=== PATIENT | male | born 2000 | race African-American/Black ===

== ENCOUNTER 2021-04-02 11:39 | Emergency (ER) | payer OTHER, SELFPAY ==
[2021-04-02 11:56] VITALS: BP 143/86; PULSE 77; RESP 16; TEMP 36.8; O2SAT 100; BMI 30.2
--- NOTE | 2021-04-02 12:01 | DI.RAD.S_ITS ---
PROCEDURE: XR KNEE LT 3V INDICATIONS: fall yesterday on knees TECHNIQUE: 3 views of the knee were acquired. COMPARISON: None. FINDINGS: Bones: No fractures or dislocations. No suspicious bony lesions. Soft tissues: No joint effusion. No suspicious soft tissue calcifications. IMPRESSION: No acute fracture. No osseous lesion. If symptoms and/or clinical suspicion for pathology persist, further assessment with repeat, or advanced imaging (e.g., CT, MRI, or bone scan) may be helpful for further assessment. Dictated by: Apollo Escobar M.D. on 04/02/2021 at 12:01 Approved by: Apollo Escobar M.D. on 04/02/2021 at 12:01
--- NOTE | 2021-04-02 12:01 | DI.RAD.S_ITS ---
PROCEDURE: XR KNEE RT 3V INDICATIONS: fall yesterday on knees TECHNIQUE: 3 views of the knee were acquired. COMPARISON: None. FINDINGS: Bones: No fractures or dislocations. No suspicious bony lesions. Soft tissues: No joint effusion. No suspicious soft tissue calcifications. IMPRESSION: No acute fracture. No osseous lesion. If symptoms and/or clinical suspicion for pathology persist, further assessment with repeat, or advanced imaging (e.g., CT, MRI, or bone scan) may be helpful for further assessment. Dictated by: Apollo Escobar M.D. on 04/02/2021 at 12:03 Approved by: Apollo Escobar M.D. on 04/02/2021 at 12:04
[2021-04-02] MEDS: ACETAMINOPHEN 325 MG TABLET 975 MG PO (13:01)
[2021-04-02] MEDS: TRAMADOL 50 MG TABLET PO (13:02)
--- NOTE | 2021-04-02 13:08 | ED.LOWEXIN ---
HPI - Extremity Injury (Lower) <TIFFANY Ewing - Last Filed: 04/02/21 18:59> General Chief Complaint: Extremity Injury, Lower Stated Complaint: Fell playing ball injure both knees Time Seen by Provider: 04/02/21 11:59 Source: patient Mode of arrival: Ambulatory History of Present Illness HPI Narrative: 21-year-old male presents to the emergency department with complaint of bilateral knee pain after mechanical fall while playing basketball yesterday on to his bilateral knees. He denies any popping, locking, clicking, getting stuck. He also denies any wounds to his knees. He reports that it is mildly swollen and tender to touch over the base of both of his knees. He denies any prior injuries to his knees. He denies any difficulty walking, he denies any numbness or tingling, denies any twisting motion during his injury. He reports that his pain is midline and at the base of his knees. Review of Systems <TIFFANY Ewing - Last Filed: 04/02/21 18:59> Review of Systems Narrative: General: denies fever, chills Head/Neck: denies headache, neck pain Eyes: denies visual changes, eye pain Cardio: denies chest pain, palpitations Respiratory: denies shortness of breath, cough GI: denies abdominal pain, nausea, vomiting, or diarrhea : denies dysuria, hematuria MSK: Endorses bilateral knee pain, denies any muscle weakness Skin: denies rash, itching Neuro: denies numbness, tingling Patient History <TIFFANY Ewing - Last Filed: 04/02/21 18:59> Social History Smoking Status: Never smoker Smoking Status: Never smoker alcohol intake frequency: 0-2 drinks per day Substance Use Type: does not use Exam <TIFFANY Ewing - Last Filed: 04/02/21 18:59> Narrative Exam Narrative: Independently reviewed vitals signs and nursing notes. General: Awake, alert, nontoxic, no cardiorespiratory distress Head/Neck: Atraumatic, neck full range of motion Eyes: EOMI, conjunctiva normal Nose: nares patent, no rhinorrhea Mouth/Throat: moist mucus membranes, posterior pharynx normal, no oral lesions Cardio: Regular rate and rhythm, no peripheral edema Respiratory: respirations unlabored without wheezing, stridor, or rales. No retractions. GI: Abdomen soft, nontender MSK: Moves all extremities, neurovascularly intact, pulses 2+ in the lateral feet, mild erythema at the base of both of his knees with very mild edema. Appears like a contusion to the base of both of his knees. No pain over his MCL, LCL, anterior drawer test negative, Santi test negative bilaterally. Full active range of motion present without deficit Skin: Normal capillary refill, no rash Neuro: Normal speech and cognition, normal gait Initial Vital Signs Initial Vital Signs: Vital Signs Temperature 98.3 F 04/02/21 11:56 Pulse Rate 77 04/02/21 11:56 Respiratory Rate 16 04/02/21 11:56 Blood Pressure 143/86 H 04/02/21 11:56 Pulse Oximetry 100 04/02/21 11:56 Course <TIFFANY Ewing - Last Filed: 04/02/21 18:59> Orders Ordered: ED Orders 04/02/21 12:01 XR knee LT 3V Stat XR knee RT 3V Stat Discontinued Medications Acetaminophen (Acetaminophen 325 Mg Tablet) 975 mg PO NOW ONE Stop: 04/02/21 12:36 Last Admin: 04/02/21 13:01 Dose: 975 mg Documented by: CRISSY Tramadol HCl (Tramadol 50 Mg Tablet) 50 mg PO NOW ONE Stop: 04/02/21 12:36 Last Admin: 04/02/21 13:02 Dose: 50 mg Documented by: CRISSY Vital Signs Vital signs: Vital Signs - 8 hr 04/02/21 11:56 Temperature 98.3 F Pulse Rate 77 Respiratory Rate 16 Blood Pressure 143/86 H Pulse Oximetry 100 MDM - Extremity Injury (Lower) <TIFFANY Ewing - Last Filed: 04/02/21 18:59> Imaging Data Extremity x-ray #1: Radiologist's Impression: PROCEDURE:? XR KNEE LT 3V ? INDICATIONS:? fall yesterday on knees ? TECHNIQUE:? 3 views of the knee were acquired.? ? COMPARISON:? None. ? FINDINGS:? ? Bones:? No fractures or dislocations.? No suspicious bony lesions.? ? Soft tissues:? No joint effusion.? No suspicious soft tissue calcifications.? ? ? IMPRESSION:? No acute fracture. No osseous lesion. If symptoms and/or clinical suspicion for pathology persist, further assessment with repeat, or advanced imaging (e.g., CT, MRI, or bone scan) may be helpful for further assessment. ? ? Dictated by: Apollo Escobar M.D. on 04/02/2021 at 12:01 ? ? Approved by: Apollo Escobar M.D. on 04/02/2021 at 12:01 ? Extremity x-ray #2: Radiologist's Impression: PROCEDURE:? XR KNEE RT 3V ? INDICATIONS:? fall yesterday on knees ? TECHNIQUE:? 3 views of the knee were acquired.? ? COMPARISON:? None. ? FINDINGS:? ? Bones:? No fractures or dislocations.? No suspicious bony lesions.? ? Soft tissues:? No joint effusion.? No suspicious soft tissue calcifications.? ? ? IMPRESSION:? No acute fracture. No osseous lesion. If symptoms and/or clinical suspicion for pathology persist, further assessment with repeat, or advanced imaging (e.g., CT, MRI, or bone scan) may be helpful for further assessment. ? ? Dictated by: Apollo Escobar M.D. on 04/02/2021 at 12:03 ? ? Approved by: Apollo Escobar M.D. on 04/02/2021 at 12:04 ? MDM Narrative Medical decision making narrative: 21-year-old male ambulate into the emergency department with complaint of pain to bilateral knees after falling on the last night while playing basketball. Patient's x-rays were negative for acute fracture, joint effusion, any osseous abnormality. Patient is ambulating without any complaint, he was given 1 dose of tramadol while in the emergency department. Patient did not have any pain over his LCL or MCL of either knee, his pain is midline and at the base of his joint. Patient has mild erythema and abrasion however no wounds or surrounding edema. Patient was instructed to follow-up with his PCP as scheduled, and to return to the emergency department if he has any worsening of his symptoms. Patient is appropriate and amenable to discharge home. Vital signs are stable on repeat examination is unremarkable. Patient has been informed of results. Patient has been given strict return to ER precautions for any new or worsening symptoms. Patient understands to follow up closely with outpatient providers as instructed. Patient understands plan and agrees to discharge home. All questions and concerns answered at this time. Discharge Plan Departure Patient Disposition: Home Clinical Impression: Contusion of knee, left Qualifiers: Encounter type: initial encounter Qualified Code(s): S80.02XA - Contusion of left knee, initial encounter Contusion of knee Qualifiers: Encounter type: initial encounter Laterality: right Qualified Code(s): S80.01XA - Contusion of right knee, initial encounter Activity Restrictions/Additional Instructions: *You have been diagnosed with bilateral knee injuries. Please use ice a couple times a day until your pain improves, you may wrap with a Zach bandage to help keep swelling down. Recommend staying off her knees much as possible for the next couple of days with a hurt. Ibuprofen and Tylenol home she will be helpful. Please follow-up with your PCP if this is ongoing. Best of luck to you *What to do: *Please continue to take your regular medications as directed. [ ] New medication prescriptions sent to your pharmacy: [ ] [ ] New medication written as a paper prescription [ x] No new medications given *Please follow up with your primary care provider in 2-3 days, call for an appointment. Let them know you were seen in the Emergency Department and that we ask that you be seen in follow up. We will electronically transmit a record of today's note if your PCP is in our system *If you do not have a primary care provider please contact the [facility] Resource line at [phone]. They will ask some questions about your medical history and help get you set up with a doctor in the community. *Return to Emergency Department if you should have any new, worsening or concerning symptoms, such as [fever greater than 101F, chills, worsening pain, persistent vomiting or other bothersome symptoms] Referrals: Miscellaneous,Doctor, MD [Primary Care Provider] - Stand Alone Forms: Work Release Note
== END 2021-04-02 13:20 | disposition home or self-care (01) ==
PROVIDERS: Emergency Provider Nurse Practitioner Critical Care Medicine
DX: S80.02XA Contusion of left knee, initial encounter (principal); S80.01XA Contusion of right knee, initial encounter; W18.30XA Fall on same level, unspecified, initial encounter; Y93.67 Activity, basketball
CPT/HCPCS: 73562; 99283

== ENCOUNTER 2022-07-10 17:59 | Emergency (ER) | payer OTHER, SELFPAY ==
[2022-07-10 18:05] VITALS: BP 141/83; PULSE 61; RESP 16; TEMP 36.7; O2SAT 99; BMI 24.6
--- NOTE | 2022-07-10 18:12 | DI.RAD.S_ITS ---
PROCEDURE: XR SHOULDER LT MIN 2V INDICATIONS: 6 foot fall with left shoulder pain roughly 2 weeks ago TECHNIQUE: 3 views of the shoulder were acquired. COMPARISON: None. FINDINGS: Bones: No fractures or dislocations. No suspicious bony lesions. Visualized ribs appear intact. Soft tissues: No suspicious soft tissue calcifications. IMPRESSION: No acute left shoulder fracture or dislocation. No signs of healing fractures. Dictated by: Hira Tyler M.D. on 07/10/2022 at 17:27 Approved by: Hira Tyler M.D. on 07/10/2022 at 17:27
--- NOTE | 2022-07-10 18:12 | DI.RAD.S_ITS ---
PROCEDURE: XR FINGER RT MIN 2V INDICATIONS: Patient unable to fully flex and extend TECHNIQUE: AP hand, 2 views of the 2nd finger(s) acquired. COMPARISON: None. FINDINGS: Bones: Small calcification over volar aspect of 2nd PIP joint is seen suggestive of acute avulsion in involving 2nd middle phalangeal base.. No suspicious bony lesions. Soft tissues: Soft tissue swelling surrounding 2nd PIP joint is seen. No suspicious soft tissue calcifications. IMPRESSION: Acute avulsion injury involving volar aspect of 2nd middle phalangeal base. Soft tissue swelling surrounding 2nd PIP joint. Dictated by: Hira Tyler M.D. on 07/10/2022 at 17:28 Approved by: Hira Tyler M.D. on 07/10/2022 at 17:29
--- NOTE | 2022-07-10 18:16 | PC.NURSE ---
Patient has inability to fully extend and retract right pointer finger since fall from flight deck while at work on the or the 9th Patient also has left shoulder pain. Patient states that they saw [employer] but had no images performed at the time.
--- NOTE | 2022-07-10 18:23 | ED_ITS ---
HPI - Extremity Injury (Upper) <TIFFANY Ewing - Last Filed: 07/10/22 19:42> General Chief Complaint: Extremity Injury, Upper Stated Complaint: Fall down 2 wks ago, Rt finger swollen, L shoulder Time Seen by Provider: 07/10/22 18:05 Source: patient Mode of arrival: Ambulatory History of Present Illness HPI narrative: This is a 22 year old male who presents emergency department complaining of left shoulder pain and right 4th digit pain from a fall off the flight deck on 06/27/22. Patient states that at the time, he also injured his left knee and had x-rays of his left knee. He complains of worsening pain to his left shoulder with movements, states it is mostly in the posterior, denies any range of motion deficit or weakness, denies sensation changes, denies deformity or bony pain. He states that the muscles in his left neck and shoulder painful and sore when he wakes up. He denies headaches or lightheadedness, denies head injury. States that his right 4th digit has been swollen at the PIP joint, tender and the swelling is persistent. Denies x-rays of these 2 extremities in the past and states that it was only of his left knee. He has full mobility intact with flexion-extension isolated each joint, denies sensation changes, just complains of pain with his finger. Related Data Allergies Allergy/AdvReac Type Severity Reaction Status Date / Time No Known Drug Allergies Allergy Verified 07/10/22 18:11 Review of Systems <TIFFANY Ewing - Last Filed: 07/10/22 19:42> Review of Systems ROS Unobtainable: All systems reviewed & are unremarkable except as noted in HPI and below Patient History <TIFFANY Ewing - Last Filed: 07/10/22 19:42> Social History Smoking Status: Never smoker Smoking Status: Never smoker alcohol intake frequency: 0-2 drinks per day Substance Use Type: does not use Exam <TIFFANY Ewing - Last Filed: 07/10/22 19:42> Narrative Exam Narrative: Reviewed vitals signs and nursing notes. General: cooperative, in no acute distress, well groomed HEENT: symmetrical facial expressions, moist mucous membranes, neck is supple CV: regular rate and rhythm, warm extremities Respiratory: Without abnormal breath sounds, normal work of breathing, without tachypnea, hypoxia. GI: abdomen soft, nontender to palpation in all quadrants, nondistended, without masses, rebound tenderness or CVA tenderness bilaterally. MSK: moves all extremities, neurovascularly intact, no weakness, normal tone, swelling of the PIP joint of his right 5th digit, flexion-extension isolated each joint and intact, brisk cap refill, no deformity other than swelling of the PIP joint. Left shoulder with negative empty can, negative Brady test, negative resistance during external rotation, shoulder flexion extension intact without exacerbation of pain, no tenderness over acromioclavicular joint, clavicle or proximal humerus. He states that it is sore in the left trapezius up to his left neck with trapezius attaches. Skin: brisk capillary refill, without rash or wound Neuro: normal speech and cognition, A&O x3, ambulatory, clear speech Initial Vital Signs Initial Vital Signs: Vital Signs Temperature 98.1 F 07/10/22 18:05 Pulse Rate 61 07/10/22 18:05 Respiratory Rate 16 07/10/22 18:05 Blood Pressure 141/83 H 07/10/22 18:05 Pulse Oximetry 99 07/10/22 18:05 Oxygen Delivery Method Room Air 07/10/22 18:05 <Sanya Land DO - Last Filed: 07/11/22 01:30> Initial Vital Signs Initial Vital Signs: Vital Signs Temperature 98.1 F 07/10/22 18:05 Pulse Rate 61 07/10/22 18:05 Respiratory Rate 16 07/10/22 18:05 Blood Pressure 141/83 H 07/10/22 18:05 Pulse Oximetry 99 07/10/22 18:05 Oxygen Delivery Method Room Air 07/10/22 18:05 Procedures <TIFFANY Ewing - Last Filed: 07/10/22 19:42> Orthopedic Splinting/Casting Injury #1: Side: right Upper Extremity Injury Location: finger Upper Extremity Immobilizer: aluminum form splint Post splinting neuro exam: intact Post splinting vascular exam: intact Placed by: Nursing Course <TIFFANY Ewing - Last Filed: 07/10/22 19:42> Orders Ordered: ED Orders 07/10/22 18:12 XR finger RT min 2V Stat XR shoulder LT min 2V Stat Discontinued Medications Ketorolac Tromethamine (Ketorolac 30 Mg/Ml Vial) 30 mg IM NOW ONE Stop: 07/10/22 18:31 Last Admin: 07/10/22 18:42 Dose: 30 mg Documented By: RB Vital Signs Vital signs: Vital Signs - 8 hr 07/10/22 18:05 Temperature 98.1 F Pulse Rate 61 Respiratory Rate 16 Blood Pressure 141/83 H Pulse Oximetry 99 Oxygen Delivery Method Room Air <Sanya Land DO - Last Filed: 07/11/22 01:30> Orders Ordered: ED Orders 07/10/22 18:12 XR finger RT min 2V Stat XR shoulder LT min 2V Stat Discontinued Medications Ketorolac Tromethamine (Ketorolac 30 Mg/Ml Vial) 30 mg IM NOW ONE Stop: 07/10/22 18:31 Last Admin: 07/10/22 18:42 Dose: 30 mg Documented By: RB Vital Signs Vital signs: Vital Signs - 8 hr 07/10/22 18:05 Temperature 98.1 F Pulse Rate 61 Respiratory Rate 16 Blood Pressure 141/83 H Pulse Oximetry 99 Oxygen Delivery Method Room Air MDM - Extremity Injury (Upper) <Nidia Romero [facility] - Last Filed: 07/10/22 19:42> Imaging Data Extremity x-ray #1: Radiologist's Impression: PROCEDURE:? XR FINGER RT MIN 2V ? INDICATIONS:? Patient unable to fully flex and extend ? TECHNIQUE:? AP hand, 2 views of the 2nd finger(s) acquired.? ? COMPARISON:? None. ? FINDINGS:? ? Bones:? Small calcification over volar aspect of 2nd PIP joint is seen suggestive of acute avulsion in involving 2nd middle phalangeal base..? No suspicious bony lesions.? ? Soft tissues:? Soft tissue swelling surrounding 2nd PIP joint is seen.? No dylan picious soft tissue calcifications.? ? IMPRESSION:? Acute avulsion injury involving volar aspect of 2nd middle phalangeal base.? Soft tissue swelling surrounding 2nd PIP joint. ? ? Dictated by: Hira Tyler M.D. on 07/10/2022 at 17:28 ? ? Approved by: Hira Tyler M.D. on 07/10/2022 at 17:29 ? Extremity x-ray #2: Radiologist's Impression: PROCEDURE:? XR SHOULDER LT MIN 2V ? INDICATIONS:? 6 foot fall with left shoulder pain roughly 2 weeks ago ? TECHNIQUE:? 3 views of the shoulder were acquired.? ? COMPARISON:? None. ? FINDINGS:? ? Bones:? No fractures or dislocations.? No suspicious bony lesions.? Visualized ribs appear intact.? ? Soft tissues:? No suspicious soft tissue calcifications.? ? IMPRESSION:? No acute left shoulder fracture or dislocation.? No signs of healing fractures. ? ? Dictated by: Hira Tyler M.D. on 07/10/2022 at 17:27 ? ? Approved by: Hira Tyler M.D. on 07/10/2022 at 17:27 ? MDM Narrative Medical decision making narrative: Chief Complaint: finger pain and left shoulder pain Independent historian: Patient Differential diagnoses include but are not limited to: Finger sprain, shoulder sprain, rotator cuff injury, acute fracture, avulsion fracture, ligamental/tendon injury I have independently reviewed the patient's vital signs and nursing notes as well as prior records if available. Pertinent Imaging reviewed: Left shoulder x-ray without acute abnormality, finger x-ray shows an acute avulsion injury involving the volar aspect of the 2nd middle phalangeal base and soft tissue edema over the 2nd PIP joint Patient's finger was splinted in partial flexion, given referral to [facility] for follow-up, patient understands to follow-up with his primary care provider for referral since he has insurance. CMS remains intact, patient tolerated splinting well, given Toradol IM for his pain. Social considerations that may affect disposition: none Questions are addressed and there is agreement with the plan and for follow-up. Patient is appropriate for outpatient management. MIPS: This encounter doesn't have any diagnosis' associated with MIPS criteria. Discharge Plan Departure Patient Disposition: Home Clinical Impression: Acute shoulder pain Avulsion fracture of proximal phalanx of finger Qualifiers: Encounter type: initial encounter Fracture type: closed Qualified Code(s): S62.619A - Displaced fracture of proximal phalanx of unspecified finger, initial encounter for closed fracture Instructions: Shoulder Sprain, DI for Avulsion Fracture Activity Restrictions/Additional Instructions: *You have been diagnosed with an avulsion injury of your left finger probably from your fall. This has pulled a small chunk bone with the tendon and immobilization is important to let this heal so that it does not heal separate from the bone. Please follow-up at [facility] for recheck, use ice, ibuprofen and Tylenol as needed, try not to bend at this joint in your finger. No concerning findings on the x-ray of your shoulder. I will send this note to the orthopedic group, please have your primary care provider give your referral to Physical therapy and Orthopedics for further evaluation. Thank you for coming in today, please keep your finger in this splint so that it starts healing, avoid doing work without the splint on. *What to do: *Please continue to take your regular medications as directed. [ ] New medication prescriptions sent to your pharmacy: [ ] [ ] New medication written as a paper prescription [x ] No new medications given *Please follow up with your primary care provider in 2-3 days, call for an appointment. Let them know you were seen in the Emergency Department and that we asked that you be seen for follow-up. We will electronically transmit a record of today's note if your PCP is in our system *If you do not have a primary care provider please contact [phone] to establish care with one of [facility] primary care providers. *Return to Emergency Department if you should have any new, worsening, or concerning symptoms, such as [fever greater than 101F, chills, worsening pain, persistent vomiting or other bothersome symptoms]. Referrals: [facility] [Provider Group] Stand Alone Forms: Patient Portal/API <Sanya Land DO - Last Filed: 07/11/22 01:30> [facility]: I was immediately available in the department for consultation. This documentation has been reviewed and I agree with assessment and plan. Supervised by Sanya Land DO
[2022-07-10] MEDS: KETOROLAC 30 MG/ML VIAL IM (18:42)
== END 2022-07-10 19:50 | disposition home or self-care (01) ==
PROVIDERS: Emergency Provider Nurse Practitioner Critical Care Medicine
DX: S62.622A Displaced fracture of middle phalanx of right middle finger, initial encounter for closed fracture (principal); M25.512 Pain in left shoulder; W17.89XA Other fall from one level to another, initial encounter
CPT/HCPCS: 73030; 73140; 96372; 99283; J1885

== ENCOUNTER 2022-12-14 22:11 | Emergency (ER) | payer OTHER, SELFPAY ==
[2022-12-14 22:18] VITALS: BP 133/66; PULSE 74; RESP 16; TEMP 38.2; O2SAT 100
--- NOTE | 2022-12-14 22:30 | DI.RAD.S_ITS ---
PROCEDURE: XR FOREARM LT 2V INDICATIONS: Fall with forearm pain TECHNIQUE: 2 views of the forearm were acquired. COMPARISON: None. FINDINGS: Bones: No definite forearm fractures or dislocations. No suspicious bony lesions. Soft tissues: No suspicious soft tissue calcifications or masses. IMPRESSION: The joint effusion seen on elbow plain films can be seen also on the forearm views and there remains a suspected radial head/neck junction fracture but a definite fracture is not seen. Dictated by: Cameron Lares M.D. on 12/14/2022 at 23:12 Approved by: Cameron Lares M.D. on 12/14/2022 at 23:14
--- NOTE | 2022-12-14 22:30 | DI.RAD.S_ITS ---
PROCEDURE: XR ELBOW LT MIN 3V INDICATIONS: Fall with elbow pain TECHNIQUE: 3 views of the elbow were acquired. COMPARISON: None. FINDINGS: Bones: No dislocations. No suspicious bony lesions. There is a suspected radial head/neck junction fracture that is only minimally displaced. Soft tissues: Moderate anterior and posterior elbow joint effusion. No suspicious soft tissue calcifications. IMPRESSION: The anterior and posterior fat pads are significantly elevated consistent with significant posttraumatic elbow joint effusion in the focus of fracture likely is at the radial head/neck junction where a slight cortical offset is present. Dictated by: Cameron Lares M.D. on 12/14/2022 at 23:10 Approved by: Cameron Lares M.D. on 12/14/2022 at 23:12
--- NOTE | 2022-12-14 22:30 | DI.RAD.S_ITS ---
PROCEDURE: XR WRIST LT MIN 3V INDICATIONS: fall on outstretched hand TECHNIQUE: For views of the wrist were acquired. COMPARISON: None. FINDINGS: Bones: No fractures or dislocations. No suspicious bony lesions. Scaphoid view: No trauma Soft tissues: No suspicious soft tissue calcifications. IMPRESSION: No definite trauma found. Dictated by: Cameron Lares M.D. on 12/14/2022 at 23:14 Approved by: Cameron Lares M.D. on 12/14/2022 at 23:14
[2022-12-14] MEDS: HYDROCODONE/ACET 5/325 TABLET 1 TAB PO (22:36)
--- NOTE | 2022-12-14 23:47 | ED.GENADULT ---
HPI - General Adult General Chief complaint: Extremity Injury, Upper Stated complaint: R arm pain Time Seen by Provider: 12/14/22 22:30 Source: patient Mode of arrival: Ambulatory Limitations: no limitations History of Present Illness HPI narrative: Patient is an otherwise healthy 22-year-old male who is here for evaluation of a left wrist/forearm/elbow injury he states that earlier this evening he was running and fell forward. He states that he fell with his arm outstretched. He would immediate pain in his left wrist and left elbow. No other injuries from the event. He states that things did seem to improve however several hours later he was sitting on the couch and when he went to get up he stated that he could not move his elbow because of discomfort. He is still having pain in his left wrist but everything seems to be stemming from his elbow. His left shoulder is unremarkable. Related Data Allergies Allergy/AdvReac Type Severity Reaction Status Date / Time No Known Drug Allergies Allergy Verified 07/10/22 18:11 Review of Systems Constitutional Constitutional: Reports system reviewed and no additional complaints, except as documented Musculoskeletal Musculoskeletal: Reports system reviewed and no additional complaints, except as documented Integumentary/Breasts Skin/Breast: Reports system reviewed and no additional complaints, except as documented Neurologic Neurologic: Reports system reviewed and no additional complaints, except as documented Patient History Social History Smoking Status: Never smoker Smoking Status: Never smoker alcohol intake frequency: 0-2 drinks per day Substance Use Type: does not use Exam Initial Vital Signs Initial Vital Signs: Vital Signs Temperature 100.8 F H 12/14/22 22:18 Pulse Rate 74 12/14/22 22:18 Respiratory Rate 16 12/14/22 22:18 Blood Pressure 133/66 12/14/22 22:18 Pulse Oximetry 100 12/14/22 22:18 Oxygen Delivery Method Room Air 12/14/22 22:18 Const General: cooperative, comfortable and No ill appearing HENMT Head: normal to inspection and normocephalic Skin General: no rashes or lesions noted Neuro Sensory Exam: no sensory deficits noted Extrem Other: Patient had discomfort with any movement of the left elbow. Can not flex and extend, pronate or supinate. He is no tenderness over the snuffbox of his left wrist. His left hand is unremarkable. Left shoulder is unremarkable. Procedures Orthopedic Splinting/Casting Injury #1: Side: left Upper Extremity Injury Location: elbow Upper Extremity Immobilizer: posterior splint Other Orthopedic Equipment: other (Sling) Post splinting neuro exam: intact Post splinting vascular exam: intact Placed by: Nursing Course Orders Ordered: ED Orders 12/14/22 22:30 XR elbow LT min 3V Stat XR forearm LT 2V Stat XR wrist LT min 3V Stat Discontinued Medications Hydrocodone Bitart/Acetaminophen (Hydrocodone/Acet 5/325 Tablet) 1 tab PO NOW ONE Stop: 12/14/22 22:31 Last Admin: 12/14/22 22:36 Dose: 1 tab Documented By: NILESH Vital Signs Vital signs: Vital Signs - 8 hr 12/14/22 22:18 Temperature 100.8 F H Pulse Rate 74 Respiratory Rate 16 Blood Pressure 133/66 Pulse Oximetry 100 Oxygen Delivery Method Room Air Medical Decision Making Imaging Data Extremity x-ray #1: Radiologist's Impression: PROCEDURE:? XR ELBOW LT MIN 3V ? INDICATIONS:? Fall with elbow pain ? TECHNIQUE:? 3 views of the elbow were acquired.? ? COMPARISON:? None. ? FINDINGS:? ? Bones:? No dislocations.? No suspicious bony lesions.? There is a suspected radial head/neck junction fracture that is only minimally displaced. ? Soft tissues:? Moderate anterior and posterior elbow joint effusion.? No suspicious soft tissue calcifications.? ? ? IMPRESSION:? The anterior and posterior fat pads are significantly elevated consistent with significant posttraumatic elbow joint effusion in the focus of fracture likely is at the radial head/neck junction where a slight cortical offset is present. Extremity x-ray #2: Radiologist's Impression: PROCEDURE:? XR FOREARM LT 2V ? INDICATIONS:? Fall with forearm pain ? TECHNIQUE:? 2 views of the forearm were acquired.? ? COMPARISON:? None. ? FINDINGS:? ? Bones:? No definite forearm fractures or dislocations.? No suspicious bony lesions.? ? Soft tissues:? No suspicious soft tissue calcifications or masses.? ? ? IMPRESSION:? The joint effusion seen on elbow plain films can be seen also on the forearm views and there remains a suspected radial head/neck junction fracture but a definite fracture is not seen. ? Extremity x-ray #3: Radiologist's Impression: PROCEDURE:? XR WRIST LT MIN 3V ? INDICATIONS: fall on outstretched hand ? TECHNIQUE:? For views of the wrist were acquired.? ? COMPARISON:? None. ? FINDINGS:? ? Bones:? No fractures or dislocations.? No suspicious bony lesions.? ? Scaphoid view:? No trauma ? Soft tissues:? No suspicious soft tissue calcifications.? ? IMPRESSION:? No definite trauma found. MDM Narrative Medical decision making narrative: Neurovascularly intact. X-ray show concern for radial head fracture. This does correspond to his physical exam. He was placed in a posterior splint. Was given a sling for comfort. No other injuries from the event. He has no snuffbox tenderness of the left wrist. He was instructed that he needed to contact his medical department and also [facility] for a follow-[place]. He was given return precautions. He expressed understanding and agreement. Discharge Plan Departure Patient Disposition: Home Clinical Impression: Fracture of radial head, left, closed Instructions: DI for Elbow Fracture, How to Take Care of Your Splint Activity Restrictions/Additional Instructions: The splint that was placed today does need to stay on and stay clean and stay dry. You do need to treat it like a cast. On Saturday you need to contact your medical department and also the [facility] [employer] [facility] for a follow-up. Return to the emergency department for new or worsening symptoms. Referrals: Miscellaneous,[facility] [Primary Care Provider] - Stand Alone Forms: Patient Portal/API
== END 2022-12-14 23:59 | disposition home or self-care (01) ==
PROVIDERS: Emergency Provider Emergency Medicine
DX: S52.122A Displaced fracture of head of left radius, initial encounter for closed fracture (principal); W18.30XA Fall on same level, unspecified, initial encounter; Y93.02 Activity, running
CPT/HCPCS: 73080; 73090; 73110; 99283; 99284

== ENCOUNTER 2023-02-11 06:42 | Emergency (ER) | payer OTHER, SELFPAY ==
[2023-02-11 06:52] VITALS: BP 132/74; PULSE 57; RESP 18; TEMP 36.9; O2SAT 100; BMI 28.4
--- NOTE | 2023-02-11 07:10 | ED_ITS ---
HPI - General Adult General Chief complaint: Eye Problems Stated complaint: eyes swollen Time Seen by Provider: 02/11/23 06:54 Source: patient Mode of arrival: Ambulatory History of Present Illness HPI narrative: 22-year-old male with no significant past medical history presents with bilateral eye swelling. Swelling began last night, associated itching. Patient took 50 mg of Benadryl and went to bed. It is slightly better today but still swollen so he decided to present for evaluation. Patient is also requesting evaluation of his right middle finger. He jammed his finger 3 days ago and it is painful, stiff, swollen at the middle joint. Related Data Previous Rx's Medication Instructions Recorded prednisone 20 mg tablet 40 mg (2 x 20 mg) PO DAILY #6 tabs 02/11/23 Allergies Allergy/AdvReac Type Severity Reaction Status Date / Time No Known Drug Allergies Allergy Verified 07/10/22 18:11 Review of Systems Review of Systems Narrative: CONSTITUTIONAL- Denies: fever, chills, fatigue HEENT-reports: Eye swelling Denies: Vision changes, sore throat, nosebleed, vision changes RESPIRATORY- Denies: shortness of breath, cough, wheezing CARDIAC- Denies: chest pain, edema, orthopnea GI- Denies: abdominal pain, nausea, vomiting, constipation, diarrhea - Denies: frequency, dysuria, hematuria, flank pain MSK- Denies: extremity pain, extremity swelling, joint pain, joint swelling SKIN-reports: Itching Denies: rash, burn, swelling NEUROLOGICAL- Denies: headache, numbness, weakness, dizziness PSYCHIATRIC- Denies: anxiety, depression, suicidal ideation, homicidal ideation Patient History Social History Smoking Status: Never smoker Smoking Status: Never smoker alcohol intake frequency: 0-2 drinks per day Substance Use Type: does not use Exam Initial Vital Signs Initial Vital Signs: Vital Signs Temperature 98.4 F 02/11/23 06:52 Pulse Rate 57 L 02/11/23 06:52 Respiratory Rate 18 02/11/23 06:52 Blood Pressure 132/74 02/11/23 06:52 Pulse Oximetry 100 02/11/23 06:52 Oxygen Delivery Method Room Air 02/11/23 06:52 Const: Awake, alert, no acute distress, nontoxic appearing Eyes: PERRL, EOMI, conjunctiva normal, mild periorbital swelling, no pain with extraocular eye movements ENT: Atraumatic, dentition normal, mucous membranes moist Cardiac: regular rate, regular rhythm RESP: unlabored, clear bilaterally, no wheezing GI: Atraumatic, soft, nontender, nondistended, no rebound, no guarding MSK: Atraumatic, full range of motion, pulses equal Skin: Warm, Dry, intact, no rashes Neuro: AO x3, CN II-XII grossly intact, moves all extremities Psych: affect normal, mood normal, not suicidal, not homicidal Course Course Course Narrative: Mild periorbital swelling and itching, likely allergic in nature. No signs or symptoms of anaphylaxis, patient denies breathing problems, nausea, vitals are stable. We will give allergy cocktail and in addition we will order x-ray imaging of right middle finger. X-rays negative for fracture. Placed in boyd tape for comfort. Periorbital swelling somewhat decreased since stand department. Patient discharged on 3 days of prednisone. Counseled to take daily anti allergy pill and to follow up with primary care physician. ED return precautions discussed at bedside. Patient expressed understanding of the plan and is in agreement at this time. All questions answered at the time of discharge. Orders Ordered: ED Orders 02/11/23 07:10 XR finger RT min 2V Stat Discontinued Medications Diphenhydramine HCl (Diphenhydramine 50 Mg/Ml Vial) 50 mg IM NOW ONE Stop: 02/11/23 07:11 Last Admin: 02/11/23 07:24 Dose: 50 mg Documented By: JEREMIAH Famotidine (Famotidine 20 Mg Tablet) 20 mg PO BID [facility] Famotidine (Famotidine 20 Mg Tablet) 20 mg PO NOW ONE Stop: 02/11/23 07:19 Last Admin: 02/11/23 07:24 Dose: 20 mg Documented By: JEREMIAH Prednisone (Prednisone 20 Mg Tablet) 60 mg PO NOW ONE Stop: 02/11/23 07:11 Last Admin: 02/11/23 07:23 Dose: 60 mg Documented By: JEREMIAH Vital Signs Vital signs: Vital Signs - 8 hr 02/11/23 06:52 02/11/23 07:11 02/11/23 07:30 Temperature 98.4 F Pulse Rate 57 L 53 L 51 L Respiratory Rate 18 16 Blood Pressure 132/74 Pulse Oximetry 100 100 100 Oxygen Delivery Method Room Air 02/11/23 08:00 02/11/23 08:23 Temperature Pulse Rate 48 L 51 L Respiratory Rate 14 Blood Pressure 116/71 Pulse Oximetry 98 99 Oxygen Delivery Method Room Air Discharge Plan Departure Patient Disposition: Home Clinical Impression: Allergic reaction Qualifiers: Encounter type: initial encounter Qualified Code(s): T78.40XA - Allergy, unspecified, initial encounter Instructions: DI for Eye Allergic Reaction Prescriptions: New prednisone 20 mg tablet 40 mg PO DAILY Qty: 6 0RF Referrals: [facility] [Primary Care Provider] - Stand Alone Forms: Patient Portal/API
--- NOTE | 2023-02-11 07:10 | DI.RAD.S_ITS ---
PROCEDURE: XR FINGER RT MIN 2V INDICATIONS: jammed middle finger, swelling TECHNIQUE: PA hand, 2 views of the middle finger acquired. COMPARISON: [facility], , XR FINGER RT MIN 2V, 07/10/2022, 18:11. FINDINGS: Bones: No acute fractures or dislocations. No suspicious bony lesions. Soft tissues: No suspicious soft tissue calcifications. Soft tissue edema is seen in the middle finger. IMPRESSION: No acute osseous abnormality. If clinical suspicion and/or symptoms persist, additional imaging with repeat plain films, or advanced imaging (e.g. CT, MRI) may be helpful for further assessment. Approved by: Paul Hammer M.D. on 02/11/2023 at 8:04
[2023-02-11 07:11] VITALS: PULSE 53; RESP 16; O2SAT 100
[2023-02-11] MEDS: predniSONE 20 MG TABLET 60 MG PO (07:23)
--- NOTE | 2023-02-11 07:23 | PC.NURSE ---
xray at bedside
[2023-02-11] MEDS: FAMOTIDINE 20 MG TABLET PO (07:24)
[2023-02-11] MEDS: diphenhydrAMINE 50 MG/ML VIAL IM (07:24)
[2023-02-11 07:30] VITALS: PULSE 51; O2SAT 100
[2023-02-11 08:00] VITALS: PULSE 48; O2SAT 98
[2023-02-11 08:23] VITALS: BP 116/71; PULSE 51; RESP 14; O2SAT 99
== END 2023-02-11 08:23 | disposition home or self-care (01) ==
PROVIDERS: Emergency Provider Emergency Medicine
DX: H57.89 Other specified disorders of eye and adnexa (principal); T78.40XA Allergy, unspecified, initial encounter
CPT/HCPCS: 73140; 96372; 99283; A9270; J1200

== ENCOUNTER 2023-06-25 20:12 | Emergency (ER) | payer OTHER, SELFPAY ==
[2023-06-25 20:20] VITALS: BP 128/63; PULSE 65; RESP 16; TEMP 37.2; O2SAT 100; BMI 28.8
--- NOTE | 2023-06-25 20:24 | DI.RAD.S_ITS ---
PROCEDURE: XR ANKLE RT MIN 3V INDICATIONS: ankle injury/pain TECHNIQUE: 3 views of the ankle were acquired. COMPARISON: None. FINDINGS: Bones: No fractures or dislocations. Ankle mortise is normally aligned. No suspicious bony lesions. Soft tissues: Lateral ankle soft tissue swelling is seen. No tibiotalar joint effusion. Achilles tendon appears normal. IMPRESSION: Lateral ankle soft tissue swelling. No acute fracture or dislocation. No significant joint effusion. Dictated by: Hira Tyler M.D. on 06/25/2023 at 22:16 Approved by: Hira Tyler M.D. on 06/25/2023 at 22:17
[2023-06-26 01:10] VITALS: BP 139/66; PULSE 61; RESP 16; O2SAT 99
--- NOTE | 2023-06-26 01:11 | PC.NURSE ---
enma'd to Rm 12
--- NOTE | 2023-06-26 01:58 | ED.LOWEXIN ---
HPI - Extremity Injury (Lower) General Chief Complaint: Extremity Injury, Lower Stated Complaint: rt ankle injury Time Seen by Provider: 06/26/23 01:58 Source: patient Mode of arrival: Wheelchair History of Present Illness HPI Narrative: Otherwise healthy 23-year-old gentleman, active [employer], was playing basketball came down landed wrong on the right foot with an inversion injury. Was able to take a couple of steps initially but is not able to do so now. He does not complain of any other injuries at this time Related Data Previous Rx's Medication Instructions Recorded prednisone 20 mg tablet 40 mg (2 x 20 mg) PO DAILY #6 tabs 02/11/23 oxycodone-acetaminophen 5 mg-325 1 tab PO Q6H PRN pain #10 tabs 06/26/23 mg tablet Allergies Allergy/AdvReac Type Severity Reaction Status Date / Time No Known Drug Allergies Allergy Verified 07/10/22 18:11 Review of Systems Review of Systems Narrative: Pertinent positive and negative findings as per HPI Patient History Social History Smoking Status: Never smoker Smoking Status: Never smoker alcohol intake frequency: holidays/special occasions only Substance Use Type: does not use Exam Initial Vital Signs Initial Vital Signs: Vital Signs Temperature 99 F 06/25/23 20:20 Pulse Rate 65 06/25/23 20:20 Respiratory Rate 16 06/25/23 20:20 Blood Pressure 128/63 06/25/23 20:20 Pulse Oximetry 100 06/25/23 20:20 Oxygen Delivery Method Room Air 06/25/23 20:20 General: Alert appropriate in no acute distress Respiratory: Able to speak in full sentences, no obvious respiratory distress Skin: No obvious rashes, warm and dry Neurologic: Grossly intact no obvious asymmetries or abnormalities Psych: appropriate insight and affect, cooperative Extremity: Right ankle and dorsum of the foot significantly swollen with minor bruising. Neurovascularly intact Course Orders Ordered: ED Orders 06/25/23 20:24 XR ankle RT min 3V Stat Discontinued Medications Ibuprofen (Ibuprofen 400 Mg Tablet) 400 mg PO NOW ONE Stop: 06/26/23 02:06 Oxycodone/Acetaminophen (Oxycodone/Acetaminophen 5/325 Tablet) 1 tab PO NOW ONE Stop: 06/26/23 02:06 Oxycodone/Acetaminophen (Oxycodone/Apap 5/325 Prepack) 1 bottle MISC DIRECTED ONE Stop: 06/26/23 02:06 Vital Signs Vital signs: Vital Signs - 8 hr 06/25/23 20:20 06/26/23 01:10 Temperature 99 F Pulse Rate 65 61 Respiratory Rate 16 16 Blood Pressure 128/63 139/66 Pulse Oximetry 100 99 Oxygen Delivery Method Room Air Room Air MDM - Extremity Injury (Lower) MDM Narrative Medical decision making narrative: CC: Right ankle pain Complicating co-morbidities: [employer] Data collected from: patient Differential considered: Fracture, sprain, knee or hip injury Exam documented above, pertinent findings include: Swelling to both medial and lateral malleoli with tenderness and swelling over the dorsum of the foot as well. He is neurovascularly intact. There is no tenderness to the proximal fibular head or knee. Imaging studies independently reviewed: Ankle x-rays do not show any acute fracture Treatments: He is given 400 mg of ibuprofen and a single Percocet. Procedure: Ankle air stirrup splint is placed on the right ankle by myself. He is neurovascularly intact pre and post placement. After placement finds that the stability in the pressure is helpful in controlling pain Discussion: 23-year-old gentleman with a right inversion ankle injury no obvious fractures. Quite a bit of swelling and significant tenderness. Ankle air stirrup splint is placed. He will be given crutches as needed. Talked about ice, elevation, ibuprofen and he has given a small prescription for Percocet for severe pain. [place] Return to the ER if symptoms are worsening. Discharge Plan Departure Patient Disposition: Home Clinical Impression: Ankle sprain and strain Instructions: DI for Ankle Sprain Activity Restrictions/Additional Instructions: Thank you for coming in today You have a bad sprain but the x-rays today do not show any obvious fractures. I have put you in an ankle air splint to help with comfort. Keeping the foot elevated and icing the ankle can help with pain and swelling Using 400 mg of ibuprofen (2 [id number] pills) and 1 Tylenol every 6 hours can be very helpful in controlling pain. For severe pain you can use 400 mg of ibuprofen and 1 Percocet. Percocet does have narcotic in it and we will cause constipation. There is addictive potential with any narcotics make sure that you are using sparingly. If you find that you are getting worse or develop any new symptoms, please feel free to return to the emergency department for further evaluation. Prescriptions: New oxycodone-acetaminophen 5-325 mg tablet 1 tab PO Q6H PRN (Reason: pain) Qty: 10 0RF No Action prednisone 20 mg tablet 40 mg PO DAILY Qty: 6 0RF Referrals: Homero Mcmillan MD [Primary Care Provider] - Stand Alone Forms: Patient Portal/API
[2023-06-26] MEDS: OXYCODONE/ACETAMINOPHEN 5/325 TABLET 1 TAB PO (02:18)
[2023-06-26] MEDS: IBUPROFEN 400 MG TABLET PO (02:18)
[2023-06-26] MEDS: OXYCODONE/APAP 5/325 PREPACK 1 BOTTLE MISC (02:18)
== END 2023-06-26 02:27 | disposition home or self-care (01) ==
PROVIDERS: Emergency Provider Emergency Medicine
DX: S93.401A Sprain of unspecified ligament of right ankle, initial encounter (principal); S96.911A Strain of unspecified muscle and tendon at ankle and foot level, right foot, initial encounter; X50.1XXA Overexertion from prolonged static or awkward postures, initial encounter; Y93.67 Activity, basketball
CPT/HCPCS: 73610; 99283

== ENCOUNTER 2023-06-27 12:33 | Emergency (ER) | payer OTHER, SELFPAY ==
[2023-06-27 12:36] VITALS: BP 121/70; PULSE 58; RESP 18; TEMP 37.1; O2SAT 100; BMI 28.4
[2023-06-27 16:11] VITALS: PULSE 59
--- NOTE | 2023-06-27 17:42 | DI.CT.S_ITS ---
PROCEDURE: CT LE RT WO CON INDICATIONS: rt foot and ankle pain TECHNIQUE: Noncontrast 3-mm axial sections acquired from the distal tibial shaft to the talar dome, with coronal and sagittal reformats.. COMPARISON: [facility], CR, XR ANKLE RT MIN 3V, 06/25/2023, 20:43. FINDINGS: Image quality: Diagnostic Bones: Tiny possible avulsion fracture tear fragment is seen dorsal to the distal talus. No other displaced fractures identified. No dislocation elsewhere. Soft tissues: There is diffuse soft tissue swelling. No full-thickness tear of the Achilles on limited CT evaluation. IMPRESSION: There is a possible tiny avulsion fracture from the dorsal talus. No other displaced fracture or dislocation identified. There is diffuse soft tissue swelling. MRI could further evaluate for ligamentous and tendinous injury. Dictated by: Jacques Agustin M.D. on 06/27/2023 at 18:40 Approved by: Jacques Agustin M.D. on 06/27/2023 at 18:44
--- NOTE | 2023-06-27 17:44 | ED.LOWEXIN ---
HPI - Extremity Injury (Lower) <Silvestre Gomez MD - Last Filed: 06/30/23 19:41> General Chief Complaint: Extremity Injury, Lower Stated Complaint: pain of rt ankle sent by PCP Time Seen by Provider: 06/27/23 14:50 Source: patient Mode of arrival: Wheelchair History of Present Illness HPI Narrative: Patient here with partner. Complains of increasing pain and swelling to the right foot and ankle since being seen here 2 days ago for right ankle sprain. Patient on crutches and Aircast splint. Patient is sent home with oxycodone as well. Patient denies any previous surgery or fracture to the ankle or foot. He has been keeping his foot and ankle elevated. Related Data Previous Rx's Medication Instructions Recorded prednisone 20 mg tablet 40 mg (2 x 20 mg) PO DAILY #6 tabs 02/11/23 oxycodone-acetaminophen 5 mg-325 1 tab PO Q6H PRN pain #10 tabs 06/26/23 mg tablet Allergies Allergy/AdvReac Type Severity Reaction Status Date / Time No Known Drug Allergies Allergy Verified 07/10/22 18:11 Review of Systems <Silvestre Gomez MD - Last Filed: 06/30/23 19:41> Review of Systems Narrative: GENERAL: negative chills, fatigue, malaise, fever, sweats. HEENT: negative sinus pain, ear pain, sore throat RESPIRATORY: negative dyspnea, cough CARDIOVASCULAR: negative chest pain, palpitations GASTROINTESTINAL: negative nausea, vomiting, abdominal pain : negative dysuria, frequency, hematuria MUSCULOSKELETAL: Positive muscle or bony pain SKIN: negative rash, skin lesions NEUROLOGIC: negative weakness, numbness ROS Unobtainable: All systems reviewed & are unremarkable except as noted in HPI and below Patient History <Silvestre Gomez MD - Last Filed: 06/30/23 19:41> Social History Smoking Status: Never smoker Smoking Status: Never smoker alcohol intake frequency: holidays/special occasions only Substance Use Type: does not use Exam <Silvestre Gomez MD - Last Filed: 06/30/23 19:41> Narrative Exam Narrative: GENERAL: in no distress, not toxic not dyspneic HEAD: Normocephalic. EYES: Pupils equal round EXTREMITIES: No gross deformities. Right knee to toes exposed. Nontender knee and proximal tib-fib. There is moderate edema to the foot dorsally and extends to the ankle. Limited flexion-extension at the ankle due to pain. There is palpable posterior tibial pulse. Foot is warm and soft. No crepitus. No pain out of proportion to exam. Brisk cap refills. Able to wiggle toes. NEURO: AOx4. SKIN: Warm and dry PSYCH: Not anxious, is cooperative Initial Vital Signs Initial Vital Signs: Vital Signs Temperature 98.7 F 06/27/23 12:36 Pulse Rate 58 L 06/27/23 12:36 Respiratory Rate 18 06/27/23 12:36 Blood Pressure 121/70 06/27/23 12:36 Pulse Oximetry 100 06/27/23 12:36 Oxygen Delivery Method Room Air 06/27/23 12:36 <Sherin Merrill MD - Last Filed: 06/29/23 01:36> Initial Vital Signs Initial Vital Signs: Vital Signs Temperature 98.7 F 06/27/23 12:36 Pulse Rate 58 L 06/27/23 12:36 Respiratory Rate 18 06/27/23 12:36 Blood Pressure 121/70 06/27/23 12:36 Pulse Oximetry 100 06/27/23 12:36 Oxygen Delivery Method Room Air 06/27/23 12:36 Course <Silvestre Gomez MD - Last Filed: 06/30/23 19:41> Orders Ordered: Discontinued Medications Hydromorphone HCl (Hydromorphone 1 Mg Inj) 2 mg IM NOW ONE Stop: 06/27/23 17:43 Last Admin: 06/27/23 17:56 Dose: 2 mg Documented By: ARTI Ondansetron HCl (Ondansetron 4 Mg Odt) 4 mg SL NOW ONE Stop: 06/27/23 17:43 Last Admin: 06/27/23 17:56 Dose: 4 mg Documented By: ARTI Vital Signs Vital signs: Vital Signs - 8 hr 06/27/23 12:36 06/27/23 16:11 Temperature 98.7 F Pulse Rate 58 L Pulse Rate [Right Dorsalis Pedis] 59 L Respiratory Rate 18 Blood Pressure 121/70 Pulse Oximetry 100 Oxygen Delivery Method Room Air <Sherin Merrill MD - Last Filed: 06/29/23 01:36> Orders Ordered: Discontinued Medications Hydromorphone HCl (Hydromorphone 1 Mg Inj) 2 mg IM NOW ONE Stop: 06/27/23 17:43 Last Admin: 06/27/23 17:56 Dose: 2 mg Documented By: ARTI Ondansetron HCl (Ondansetron 4 Mg Odt) 4 mg SL NOW ONE Stop: 06/27/23 17:43 Last Admin: 06/27/23 17:56 Dose: 4 mg Documented By: ARTI Vital Signs Vital signs: Vital Signs - 8 hr 06/27/23 12:36 06/27/23 16:11 Temperature 98.7 F Pulse Rate 58 L Pulse Rate [Right Dorsalis Pedis] 59 L Respiratory Rate 18 Blood Pressure 121/70 Pulse Oximetry 100 Oxygen Delivery Method Room Air MDM - Extremity Injury (Lower) <Silvestre Gomez MD - Last Filed: 06/30/23 19:41> [facility] Narrative Medical decision making narrative: Patient here with partner. Complains of increasing pain and swelling to the right foot and ankle since being seen here 2 days ago for right ankle sprain. Patient on crutches and Aircast splint. Patient is sent home with oxycodone as well. Patient denies any previous surgery or fracture to the ankle or foot. He has been keeping his foot and ankle elevated. After history and exam Dilaudid intramuscular Zofran, CT right foot and ankle [facility] CC: Foot and ankle pain and swelling Complicating co-morbidities: None Data collected from: Patient and partner Medical records reviewed: Seen here 2 days ago Differential considered: Includes but not limited to foot fracture ankle fracture compartment syndrome Exam documented above, pertinent findings include: Swollen/edematous tender foot Imaging studies independently reviewed: CT ankle and foot Consultations: Treatments: Dilaudid Re-evaluations: Discussion: Diagnosis: 6:00 p.m.. Sign out to Dr. Merrill. CT imaging is pending. Possible occult fracture, may need to call orthopedic regarding the edema. <Sherin Merrill MD - Last Filed: 06/29/23 01:36> [facility] Narrative Medical decision making narrative: Patient here with partner. Complains of increasing pain and swelling to the right foot and ankle since being seen here 2 days ago for right ankle sprain. Patient on crutches and Aircast splint. Patient is sent home with oxycodone as well. Patient denies any previous surgery or fracture to the ankle or foot. He has been keeping his foot and ankle elevated. After history and exam Dilaudid intramuscular Zofran, CT right foot and ankle [facility] CC: Foot and ankle pain and swelling Complicating co-morbidities: None Data collected from: Patient and partner Medical records reviewed: Seen here 2 days ago Differential considered: Includes but not limited to foot fracture ankle fracture compartment syndrome Exam documented above, pertinent findings include: Swollen/edematous tender foot Imaging studies independently reviewed: CT ankle and foot Consultations: Treatments: Dilaudid Re-evaluations: Discussion: Diagnosis: 6:00 p.m.. Sign out to Dr. Merrill. CT imaging is pending. Possible occult fracture, may need to call orthopedic regarding the edema. Dr. Merrill: Care of patient is signed out to me by daytime doctor. CT of the lower extremity shows possible tiny avulsion chip fracture off the talus. Patient was reassessed, resting comfortably in the room. Edema is minimal, compartments soft, neurovascularly intact. Patient informed of CT results, recommended close follow up with PCP and orthopedic surgery. Placed in Cam boot for stabilization. Patient already has crutches in his car. He also requested a note for work, which was provided. Discharge Plan Departure Patient Disposition: Home Clinical Impression: Displaced avulsion fracture (chip fracture) of right talus, initial encounter for closed fracture Instructions: Ankle Fracture Activity Restrictions/Additional Instructions: there is the possiblity of a chip fracture of your distal talus, which is a bone in your ankle joint. Follow up with your primary care doctor and orthopedic surgery Prescriptions: No Action prednisone 20 mg tablet 40 mg PO DAILY Qty: 6 0RF oxycodone-acetaminophen 5-325 mg tablet 1 tab PO Q6H PRN (Reason: pain) Qty: 10 0RF Referrals: Homero Mcmillan MD [Primary Care Provider] - Barak Page MD [Physician] - Stand Alone Forms: Patient Portal/API, Work Release Note
[2023-06-27] MEDS: ONDANSETRON 4 MG ODT SL (17:56)
[2023-06-27] MEDS: HYDROMORPHONE 1 MG INJ 2 MG IM (17:56)
[2023-06-27 20:12] VITALS: BP 131/69; PULSE 52; RESP 14; O2SAT 100
== END 2023-06-27 20:14 | disposition home or self-care (01) ==
PROVIDERS: Emergency Provider Emergency Medicine
DX: S92.151A Displaced avulsion fracture (chip fracture) of right talus, initial encounter for closed fracture (principal); X58.XXXA Exposure to other specified factors, initial encounter
CPT/HCPCS: 73700; 96372; 99283; 99284; J1170

== ENCOUNTER → 2024-06-19 13:41 | Outpatient (CLI) | payer OTHER, SELFPAY ==
--- NOTE | 2024-06-19 13:43 | DI.RAD.S_ITS ---
PROCEDURE: XR SHOULDER LT MIN 2V INDICATIONS: LEFT SHOULDER PAIN TECHNIQUE: 3 views of the shoulder were acquired. COMPARISON: [facility], CR, XR SHOULDER LT MIN 2V, 07/10/2022, 18:11. FINDINGS: Bones: No fractures or dislocations. No suspicious bony lesions. Visualized ribs appear intact. Soft tissues: No suspicious soft tissue calcifications. IMPRESSION: No acute bony abnormality. Approved by: Kevin Yarbrough M.D. on 06/19/2024 at 14:45
== END ==
PROVIDERS: Referring Provider Physical Medicine & Rehabilitation; Visit Provider Physical Medicine & Rehabilitation
DX: M25.512 Pain in left shoulder (principal)
CPT/HCPCS: 73030